=== PATIENT | female | born 1970 | race Caucasian/White ===

== ENCOUNTER → 2016-08-29 | Outpatient (CLI) | payer BC | LOC: MC.RAD 08:33 | DX: Z12.31 Encounter for screening mammogram for malignant neoplasm of breast (principal); N64.89 Other specified disorders of breast ==

== ENCOUNTER → 2016-09-03 | Outpatient (CLI) | payer BC | LOC: MC.RAD 08:00 | DX: N64.89 Other specified disorders of breast (principal) ==

== ENCOUNTER → 2017-03-10 | Outpatient (CLI) | payer BC | LOC: MC.RAD 07:58 | DX: Z12.31 Encounter for screening mammogram for malignant neoplasm of breast (principal); N64.89 Other specified disorders of breast ==

== ENCOUNTER → 2017-08-28 | Outpatient (CLI) | payer BC | LOC: MC.RAD 09:55 | DX: R92.8 Other abnormal and inconclusive findings on diagnostic imaging of breast (principal) ==

== ENCOUNTER → 2018-09-22 | Outpatient (CLI) | payer BC | LOC: MC.RAD 08-31 08:15 | DX: Z12.31 Encounter for screening mammogram for malignant neoplasm of breast (principal) ==

== ENCOUNTER 2018-11-30 09:59 | Day surgery (SDC) | payer BC ==
[2018-11-30] VITALS (7 sets, daily range): BP systolic 86–104; BP diastolic 41–62; PULSE 44–61; TEMP 98–98.2
[~2018-11-30] VITALS: Ht 172.7 cm; Wt 68.0 kg
[2018-11-30] MEDS ORDERED: SYNTHROID0.125 MG/T PO (10:26)
[2018-11-30] MEDS ORDERED: SYNTHROID0.137 MG PO (10:26)
--- NOTE | 2018-11-30 13:05 | NUR ---
Patient arrives to [facility] via cart, accompanied by [facility] RN Renetta. Bedside report received. Patient ambulates with steady gait to chair in room. Monitoring applied - VSS and WNL on room air. Denies any pain, nausea, or need. Offered and receives water and a muffin to eat. Dr. Mann at the bedside and talks with patient and her spouse. Call light in reach. Will continue to monitor.
--- NOTE | 2018-11-30 13:20 | NUR ---
Patient complains that she is hot, sweaty. Her BP reads 68/34. IVF opened to gravity, chair reclined. BP re-check is 96/46. Patient given a fan, cold washcloth. She is alert and oriented. Will continue to monitor.
--- NOTE | 2018-11-30 13:35 | NUR ---
BP is 86/59. Patient is alert and oriented, asymptomatic. IVF continues to infuse by gravity. Will continue to monitor.
--- NOTE | 2018-11-30 13:50 | NUR ---
Patient is resting comfortably in room. She ate/drank, no nausea/vomiting. Denies any pain. She is bradycardic and hypotensive, but asymptomatic. Notified Dr. Mann of vitals - per Dr. Mann, finish bag of IVF and then patient may discharge home. Will continue to monitor.
--- NOTE | 2018-11-30 14:05 | NUR ---
VSS on room air. Patient denies any complaints. IVF finished infusing. Discharge criteria has been met. Will return with DC instructions.
--- NOTE | 2018-11-30 14:10 | NUR ---
Discharge instructions discussed, denies any questions, and verbalizes understanding. PIV removed with catheter intact and hemostasis achieved. Patient changes to clothing independently. Escorted to exit via wheelchair. Discharged to home with ride in private vehicle at 1410.
== END 2018-11-30 14:10 | disposition home or self-care (01) ==
LOC: SDCO 09:59
DX: Z12.11 Encounter for screening for malignant neoplasm of colon (principal); K62.89 Other specified diseases of anus and rectum; E03.9 Hypothyroidism, unspecified; Z98.51 Tubal ligation status
CPT/HCPCS: J2250; J2405; J3010; J7030

== ENCOUNTER → 2019-10-01 | Outpatient (CLI) | payer BC ==
[~2019-10-01] MED LIST: SYNTHROID0.125 MG/T PO; SYNTHROID0.137 MG PO
== END ==
LOC: MC.RAD 07:57
DX: Z12.31 Encounter for screening mammogram for malignant neoplasm of breast (principal)

== ENCOUNTER → 2020-09-28 | Outpatient (CLI) | payer BC | LOC: COL.RAD 12:15 | DX: D25.9 Leiomyoma of uterus, unspecified (principal) ==

== ENCOUNTER → 2020-10-17 | Outpatient (CLI) | payer BC | LOC: MC.RAD 10:32 | DX: Z12.31 Encounter for screening mammogram for malignant neoplasm of breast (principal) ==